=== PATIENT | female | born 1970 | race Caucasian/White ===

== ENCOUNTER 2018-08-14 23:21 | Inpatient (IN) | payer MEDICAID ==
[~2018-08-14] VITALS: Ht 160 cm; Wt 100.7 kg
[2018-08-14 23:24] VITALS: BP 176/98
--- NOTE | 2018-08-14 23:31 | NUR ---
PT AMBULATED TO BED 3
--- NOTE | 2018-08-14 23:37 | NUR ---
47 YO F BIB SELF AND MOTHER PRESENTS TO THE ED C/O 02/07 EPIGASTRIC/FLANK PAIN THAT X 1 DAY ACCOMPANIED BY N/V. PT REPORTS HX OF GALLSTONES. PT STATES SHE HAS EXPERIENCED THIS PAIN IN THE PAST AND IS USUALLY RELIEVED BY IBUPROFEN. PT STATES THAT MOTRIN HAS NOT HELPED HER PAIN. DENIES CHANGE IN BOWEL PATTERN. --SKIN IS PINK, DRY, WARM. PT IS ALERT, CALM, COOPERATIVE. BEHAVIOR APPROPRIATE. PT POSITIONED FOR COMFORT. HOB ELEVATED. SIDE RAIL UP X1. BED IN LOWEST POSITION. VSS. NO ACUTE DISTRESS AT THIS TIME.
[2018-08-14] MEDS ORDERED: NACL 0.9% 500 ML IV ONE (23:38)
[2018-08-14] MEDS ORDERED: KETOROLAC 30 MG/ML VIAL IVP ONE (23:40)
[2018-08-14] MEDS ORDERED: ONDANSETRON 4 MG/2 ML VIAL IVP ONE (23:40)
[2018-08-14 23:54] LABS: BASOPHILS # (AUTO) 0.1 K/uL (0.00-0.22); BASOPHILS % (AUTO) 0.9 % (0.0-2.0); EOSINOPHILS # (AUTO) 0.2 K/uL (0-0.4); EOSINOPHILS % (AUTO) 2.5 % (0.0-4.0); HEMOGLOBIN 13.6 g/dL (12.0-16.0); LYMPHOCYTES # (AUTO) 2.5 K/uL (2.5-16.5); LYMPHOCYTES % (AUTO) 26.9 % (20.5-51.1); MEAN CORPUSCULAR HEMOGLOBIN 27 pg (27-31); MEAN CORPUSCULAR HGB CONC 33 g/dL (33-37); MEAN CORPUSCULAR VOLUME 81.1 fL (80-94); MONOCYTES # (AUTO) 0.5 K/uL (0.8-1.0); NEUTROPHILS # (AUTO) 5.8 K/uL (1.8-7.7); NEUTROPHILS % (AUTO) 63.7 % (42.2-75.2); PLATELET COUNT (AUTO) 198 K/uL (140-450); RED BLOOD CELL COUNT(AUTO) 5.06 MIL/uL (4.20-5.40); RED CELL DISTRIBUTION WIDTH 16.8 % (11.6-13.7); WHITE BLOOD COUNT (AUTO) 9.1 K/uL (4.8-10.8)
[2018-08-15 00:08] LABS: ANION GAP 12.5 (8-16); CARBON DIOXIDE 25.2 mmol/L (21-32); CREATININE 0.7 mg/dL (0.6-1.3); POTASSIUM 3.7 mmol/L (3.5-5.1)
[2018-08-15 00:13] LABS: ALBUMIN 3.6 g/dL (3.4-5.0); TOTAL BILIRUBIN 0.2 mg/dL (0.0-1.0)
[2018-08-15] MEDS ORDERED: METOCLOPRAMIDE 10 MG/2 ML INJ VIAL IVP ONE (00:25)
--- NOTE | 2018-08-15 00:36 | NUR ---
US AT BEDSIDE.
--- NOTE | 2018-08-15 01:23 | NUR ---
PT TAKEN TO CT VIA WC.
[2018-08-15] MEDS ORDERED: ACETAMINOPHEN 325 MG TAB PO PRN (02:25)
[2018-08-15] MEDS ORDERED: DOCUSATE SODIUM 100 MG GELCAP PO PRN (02:25)
[2018-08-15 02:50] VITALS: BP 143/80
--- NOTE | 2018-08-15 02:50 | NUR ---
PT ARRIVED TO UNIT VIA GURNEY. PT AOX4, ON ROOM AIR WITH RIGHT HAND #20G RUNNING NS @100ML/HR. DISCUSSED PLAN OF CARE AND PT VERBALIZED UNDERSTANDING. NO S/S OF RESPIRATORY DISTRESS OR DISCOMFORT NOTED AT THIS TIME. VITAL SIGNS TAKE AND MRSA NASAL SWAB COLLECTED. PT C/O 09/07 PAIN- WILL MEDICATE. BED IN LOWEST POSITION, BED BREAKS ON, BOTH SIDE RAILS UP. BEDSIDE TABLE AND CALL LIGHT ARE WITHIN REACH. WILL CONTINUE TO MONITOR.
--- NOTE | 2018-08-15 02:50 | NUR ---
Patient will be admitted to care of Dr. Mejia. Admited to MS. Will go to room 112 A. Belongings list completed. Report to ROBERTH Gurrola.
[2018-08-15 02:51] LABS: PROTHROMBIN TIME 8.9 secs (10.8-13.4)
[2018-08-15 02:57] LABS: CHOL/HDL RATIO 4.7 (1-4.5); FREE T4 (FREE THYROXINE) 1.06 ng/dL (0.76-1.46); MAGNESIUM 2.2 mg/dL (1.8-2.4); PHOSPHORUS 2.5 mg/dL (2.5-4.9); THYROID STIMULATING HORMONE 5.69 uIU/mL (0.34-3.74)
[2018-08-15 03:02] LABS: APPEARANCE,URINE CLEAR (CLEAR); BILIRUBIN,URINE NEGATIVE (NEGATIVE); BLOOD, URINE TRACE-I (NEGATIVE); COLOR,URINE YELLOW (YELLOW); LEUKOCYTE ESTERASE ,URINE TRACE (NEGATIVE); NITRITE, URINE NEGATIVE (NEGATIVE); PH,URINE 6.5 (5.0-9.0); UGLUCOSE NEGATIVE (NEGATIVE)
[2018-08-15] MEDS: NACL 0.9% 1,000 ML IV SCH ×2 (03:03→14:53)
[2018-08-15 03:11] LABS: BARBITURATE, URINE NEG. ng/ml (NEG <=200); BENZODIAZEPINE, URINE NEG. ng/mL (NEG <=200); CANNABINOID, URINE NEG. ng/mL (NEG <=50); COCAINE, URINE NEG. ng/mL (NEG <=300); OPIATE, URINE NEG. ng/mL (NEG <=2000); PHENCYCLIDINE SCREEN,URINE NEG. ng/mL (NEG <=25)
[2018-08-15 03:21] LABS: RBC,URINE 0-5 /HPF (0-5); WBC,URINE 0-5 /HPF (0-5)
[2018-08-15] MEDS ORDERED: traZODone 50 MG TAB PO SCH (03:30)
[2018-08-15] MEDS: ONDANSETRON 4 MG/2 ML VIAL IM/IVP PRN ×3 (03:39→23:10)
[2018-08-15] MEDS: MORPHINE SULFATE 2 MG/ML SYR IVP PRN ×3 (03:39→14:53)
--- NOTE | 2018-08-15 03:39 | NUR ---
DR. JOAN HOPKINS IN TO SEE PT. ORDERED TO GIVE MORPHINE, ZOFRAN AND TRASADONE. MEDICATIONS GIVEN AND TOLERATED WELL. NO S/S OF RESPIRATORY DISTRESS OR DISCOMFORT NOTED AT THIS TIME. WILL CONTINUE TO MONITOR.
--- NOTE | 2018-08-15 05:56 | NUR ---
SCHEDULED MEDICATION ROCEPHIN GIVEN AND TOLERATED WELL. NO S/S OF RESPIRATORY DISTRESS OR DISCOMFORT NOTED AT THIS TIME. WILL CONTINUE TO MONITOR.
[2018-08-15] MEDS ORDERED: cefTRIAXone 1,000 MG VIAL ONE (06:01)
--- NOTE | 2018-08-15 07:25 | NUR ---
ENDORSED PT CARE TO DAY SHIFT NURSE BRIDGET FOR CONTINUITY OF CARE.
--- NOTE | 2018-08-15 07:26 | NUR ---
GOT BEDSIDE REPORT FROM ROBERTH BRIDGES. PATIENT ON MED SURGE AND STANDARD PRECAUTIONS IN PLACE. PATIENT AAOX4 AND ON ROOM AIR, NO DISTRESS NOTED. SKIN INTACT. IV ON R H 20 G, IV ASYMPTOMATIC PATENT AND INTACT. PATIENT AMBULATORY AND CONTINENT. BED IN LOW POSITION, CALL LIGHT WITHIN REACH, SIDE RAILS X2 UP
[2018-08-15 08:00] VITALS: BP 123/69
--- NOTE | 2018-08-15 08:14 | NUR ---
PATIENT HAS BEEN SCREENED AND CATEGORIZED LOW NUTRITION RISK. PATIENT WILL BE SEEN WITHIN 7 DAYS OF ADMISSION. 08/21/[address]
[2018-08-15] MEDS: TAMSULOSIN 0.4 MG CAP PO SCH (08:22)
[2018-08-15] MEDS: LACTOBACILLUS RHAMNOSUS GG 1 EACH CAP PO SCH (08:22)
--- NOTE | 2018-08-15 08:30 | NUR ---
ADMINISTERED SCHEDULED MEDS AND MORPHINE PRN 8/10 ABDOMINAL PAIN. PATIENT TOLERATED WELL
--- NOTE | 2018-08-15 10:56 | NUR ---
PATIENT AWARE OF SCHEDULED HIDA SCAN AROUND 1 PM TODAY AND THAT SHE CANNOT HAVE ANYTHING BY MOUTH, PT VERBALIZED UNDERSTANDING
[2018-08-15 11:28] LABS: EOSINOPHILS # (AUTO) 0.1 K/uL (0-0.4); EOSINOPHILS % (AUTO) 1.6 % (0.0-4.0); LYMPHOCYTES # (AUTO) 1.6 K/uL (2.5-16.5); MONOCYTES # (AUTO) 0.4 K/uL (0.8-1.0)
[2018-08-15 11:34] LABS: BASOPHILS % (AUTO) 0.5 % (0.0-2.0); HEMATOCRIT 36.9 % (36-48); LYMPHOCYTES % (AUTO) 25.9 % (20.5-51.1); MEAN CORPUSCULAR HEMOGLOBIN 27 pg (27-31); MEAN CORPUSCULAR HGB CONC 33 g/dL (33-37); MEAN CORPUSCULAR VOLUME 82.3 fL (80-94); NEUTROPHILS # (AUTO) 4.1 K/uL (1.8-7.7); PLATELET COUNT (AUTO) 176 K/uL (140-450); RED BLOOD CELL COUNT(AUTO) 4.48 MIL/uL (4.20-5.40); RED CELL DISTRIBUTION WIDTH 16.8 % (11.6-13.7); WHITE BLOOD COUNT (AUTO) 6.2 K/uL (4.8-10.8)
[2018-08-15 11:50] LABS: ANION GAP 10.8 (8-16); CREATININE 0.7 mg/dL (0.6-1.3); POTASSIUM 3.8 mmol/L (3.5-5.1)
--- NOTE | 2018-08-15 12:28 | NUR ---
PATIENT WATCHING TV, ON ROOM AIR NO DISTRESS NOTED
--- NOTE | 2018-08-15 13:34 | NUR ---
PATIENT PICKED UP FOR HIDA SCAN, CONSENT FORM SIGNED, CONSENT IN CHART
--- NOTE | 2018-08-15 16:22 | NUR ---
[facility]
[2018-08-15 16:35] VITALS: BP 144/81
--- NOTE | 2018-08-15 16:51 | NUR ---
ADMINISTERED ZOFRAN PRN FOR NAUSEA, PATIENT TOLERATED WELL
--- NOTE | 2018-08-15 19:22 | NUR ---
GAVE BEDSIDE REPORT TO ROBERTH MELLO. PATIENT ENDORSED IN STABLE CONDITION
--- NOTE | 2018-08-15 19:33 | NUR ---
RECEIVED FROM AM RN IN BED SITTING UP AND TALKING WITH A FAMILY MEMBER VISITING. ABLE TO VERBALIZE WELL IN ROMANSH. CARE PLANS FOR THE NIGHT DISCUSSED WITH PT. CALL LIGHT WITH IN REACH. NO SOB. DENIES PAIN AT THIS TIME. DX. OF CHOLECYSTITIS AND HYDRONEPHROSIS. IVF SITE TO LEFT HAND IN PLACE AND NO INFILTRATION NOTED.
--- NOTE | 2018-08-15 21:41 | NUR ---
RECEIVED ORDER FROM MD BISHOP TO GET CONSENT FOR PROCEDURE TOMORROW. RESIDENT MD RODAS. REMINDED PT. SHE IS NPO STARTING MIDNIGHT ORDERED BY MD BISHOP. A/O X 4. "OK"
[2018-08-15 22:59] VITALS: BP 147/87
[2018-08-15] MEDS: KETOROLAC 15 MG/ML VIAL IVP PRN ×2 (23:04→23:10)
--- NOTE | 2018-08-15 23:12 | NUR ---
PT. AWAKE AND REQUESTED FOR PAIN RELIEVER AND ANTI NAUSEA MEDICATION. A/O X 4. MEDICATED REQUESTED. ENCOURAGED TO RELAX AND TRY GO TO SLEEP. REMINDED OF NPO MIDNIGHT . "OK"
--- NOTE | 2018-08-16 01:35 | NUR ---
CHECKED ON PT. SLEEPING. NO RESTLESSNESS. CALL LIGHT WITH IN REACH. IVF SITE TO LEFT HAND INTACT AND NO INFILTRATION .
[2018-08-16] MEDS: NACL 0.9% 1,000 ML IV SCH ×2 (03:22→16:17)
--- NOTE | 2018-08-16 04:00 | NUR ---
SLEEPING WELL. NO RESTLESSNESS. CALL LIGHT WITHIN REACH.
--- NOTE | 2018-08-16 05:30 | NUR ---
SLEEPING WELL THIS SHIFT. CALL LIGHT WITH IN REACH. NO SOB. NO PAIN COMPLAINTS FURTHER DONE. ABLE TO VERBALIZE NEEDS WELL.
--- NOTE | 2018-08-16 06:17 | NUR ---
SLEEPING. AM PERSONAL HYGIENE RENDERED BY KEYLINER. WAKES UP EASILY. NO PAIN COMPLAINTS AT THIS TIME.
--- NOTE | 2018-08-16 07:10 | NUR ---
GOT BEDSIDE REPORT FROM ROBERTH MELLO. PATIENT AAOX3 AND ON ROOM AIR, NO DISTRESS NOTED. SKIN INTACT. IV ON L H 20 G INFUSING NS AT 80, IV ASYMPTOMATIC PATENT AND INTACT. PATIENT AMBULATORY AND CONTINENT. PATIENT ON MED SURGE AND STANDARD PRECAUTIONS IN PLACE. BED IN LOW POSITION, CALL LIGHT WITHIN REACH, SIDE RAILS X2 UP
[2018-08-16 07:19] LABS: MAGNESIUM 1.9 mg/dL (1.8-2.4); PHOSPHORUS 2.5 mg/dL (2.5-4.9)
[2018-08-16 07:20] LABS: ANION GAP 10.1 (8-16); CARBON DIOXIDE 25.7 mmol/L (21-32); CREATININE 0.6 mg/dL (0.6-1.3); POTASSIUM 3.8 mmol/L (3.5-5.1)
[2018-08-16 08:00] VITALS: BP 142/80
[2018-08-16] MEDS: LACTOBACILLUS RHAMNOSUS GG 1 EACH CAP PO SCH (09:06)
[2018-08-16] MEDS: TAMSULOSIN 0.4 MG CAP PO SCH (09:06)
--- NOTE | 2018-08-16 09:14 | NUR ---
ADMINISTERED SCHEDULED MEDS. PATIENT TOLERATED WELL
[2018-08-16 09:26] LABS: BASOPHILS % (AUTO) 0.5 % (0.0-2.0); EOSINOPHILS # (AUTO) 0.1 K/uL (0-0.4); EOSINOPHILS % (AUTO) 1.3 % (0.0-4.0); HEMATOCRIT 35.7 % (36-48); HEMOGLOBIN 11.5 g/dL (12.0-16.0); LYMPHOCYTES # (AUTO) 1.9 K/uL (2.5-16.5); LYMPHOCYTES % (AUTO) 31.3 % (20.5-51.1); MEAN CORPUSCULAR HEMOGLOBIN 27 pg (27-31); MEAN CORPUSCULAR HGB CONC 32 g/dL (33-37); MEAN CORPUSCULAR VOLUME 82.5 fL (80-94); MONOCYTES # (AUTO) 0.4 K/uL (0.8-1.0); MONOCYTES % (AUTO) 6.9 % (1.7-9.3); NEUTROPHILS # (AUTO) 3.7 K/uL (1.8-7.7); PLATELET COUNT (AUTO) 165 K/uL (140-450); RED BLOOD CELL COUNT(AUTO) 4.33 MIL/uL (4.20-5.40); WHITE BLOOD COUNT (AUTO) 6.2 K/uL (4.8-10.8)
--- NOTE | 2018-08-16 11:30 | NUR ---
L H IV LEAKING AND PATIENT COMPLAINING OF PAIN AT SITE. REMOVED L HAND IV 20 G
--- NOTE | 2018-08-16 11:37 | NUR ---
NEW IV STARTED ON L H 22 G, ASYMPTOMATIC PATENT AND INTACT. INFUSING NS AT 80
[2018-08-16] MEDS: KETOROLAC 15 MG/ML VIAL IVP PRN ×2 (11:50→21:47)
--- NOTE | 2018-08-16 14:40 | NUR ---
DR. SAWYER STATED PATIENT WILL HAVE SURGERY TOMORROW AND SHE WILL BE ON FULL LIQUID DIET FOR NOW. NOTIFIED PATIENT OF PLAN
[2018-08-16 16:00] VITALS: BP 125/78
[2018-08-16] MEDS: ONDANSETRON 4 MG/2 ML VIAL IM/IVP PRN (17:33)
--- NOTE | 2018-08-16 17:39 | NUR ---
ADMINISTERED ZOFRAN PRN FOR NAUSEA, PATIENT TOLERATED WELL, ON ROOM AIR, NO DISTRESS NOTED, WATCHING TV SITTING ON CHAIR
--- NOTE | 2018-08-16 19:19 | NUR ---
GAVE BEDSIDE REPORT TO ROBERTH MELLO. PATIENT ENDORSED IN STABLE CONDITION
--- NOTE | 2018-08-16 19:20 | NUR ---
RECEIVED FROM AM RN IN BED SLEEPING. WAKES UP EASILY WHEN CALLED BY NAME. NO SOB. NO PAIN COMPLAINTS AT THIS TIME. CALL LIGHT WITH IN REACH. REMINDED NPO MIDNIGHT TONIGHT FOR PLANNED PROCEDURE TOMORROW. "OK"
--- NOTE | 2018-08-16 20:38 | NUR ---
PT. AWAKE AT T HIS TIME A ND TALKING ON PHONE WITH FRIEND. REMINDED NPO MIDNIGHT. "OK" A/O X 4. ROM X 4. CLEAR SPEECH. DENIES PAIN AT THIS TIME.
--- NOTE | 2018-08-16 22:48 | NUR ---
SLEEPING AT THIS TIME.
--- NOTE | 2018-08-17 00:30 | NUR ---
SLEEPING AT THIS TIME. WAKES UP EASILY WHEN TOUCHED OR CALLED BY NAME. BEEN NPO SINCE MIDNIGHT.
[2018-08-17 00:45] VITALS: BP 124/71
--- NOTE | 2018-08-17 03:12 | NUR ---
AWAKE AND WENT TO RESTROOM TO URINATE. NO COMPLAINTS DONE.
[2018-08-17] MEDS: NACL 0.9% 1,000 ML IV SCH ×2 (05:10→20:34)
--- NOTE | 2018-08-17 05:36 | NUR ---
PT. AWAKE AND ASKING IF HER MOTHER COULD GO IN EARLY BEFORE SHE GOES TO OR. TOLD HER OK. NO PAIN COMPLAINTS DONE. VERBALIZING WELL.
[2018-08-17 06:32] LABS: BASOPHILS % (AUTO) 0.6 % (0.0-2.0); EOSINOPHILS # (AUTO) 0.2 K/uL (0-0.4); HEMATOCRIT 35.9 % (36-48); HEMOGLOBIN 11.9 g/dL (12.0-16.0); LYMPHOCYTES # (AUTO) 1.9 K/uL (2.5-16.5); LYMPHOCYTES % (AUTO) 33.4 % (20.5-51.1); MEAN CORPUSCULAR HEMOGLOBIN 27 pg (27-31); MEAN CORPUSCULAR HGB CONC 33 g/dL (33-37); MEAN CORPUSCULAR VOLUME 81.8 fL (80-94); MONOCYTES # (AUTO) 0.4 K/uL (0.8-1.0); MONOCYTES % (AUTO) 6.6 % (1.7-9.3); NEUTROPHILS # (AUTO) 3.2 K/uL (1.8-7.7); NEUTROPHILS % (AUTO) 56.4 % (42.2-75.2); PLATELET COUNT (AUTO) 180 K/uL (140-450); RED BLOOD CELL COUNT(AUTO) 4.39 MIL/uL (4.20-5.40); RED CELL DISTRIBUTION WIDTH 16.9 % (11.6-13.7); WHITE BLOOD COUNT (AUTO) 5.6 K/uL (4.8-10.8)
[2018-08-17 06:35] LABS: ANION GAP 8.9 (8-16); CARBON DIOXIDE 26.9 mmol/L (21-32); CREATININE 0.7 mg/dL (0.6-1.3); POTASSIUM 3.8 mmol/L (3.5-5.1)
[2018-08-17 06:44] LABS: MAGNESIUM 1.9 mg/dL (1.8-2.4); PHOSPHORUS 2.3 mg/dL (2.5-4.9)
--- NOTE | 2018-08-17 07:19 | NUR ---
PT. WHEELED OUT TO OR BY OR NURSES AWAKE AND ALERT. VERBALIZING WELL. NO COMPLAINTS DONE.
--- NOTE | 2018-08-17 07:20 | NUR ---
RECEIVED BEDSIDE REPORT FROM ROBERTH MELLO. PT STABLE, AWAKE, AND ALERT AND ORIENTED X4. NO SIGNS OF DISTRESS NOTED. DENIES PAIN OR SOB. NO REDNESS, SWELLING, OR INFLAMMATION NOTED ON IV SITE. BED IN LOWEST POSITION. CALL HARDEN WITHIN REACH. SAFETY MEASURES IN PLACE. PLAN OF CARE REVIEWED. PT TAKEN TO THE OR BY OR NURSES.
[2018-08-17] MEDS ORDERED: ONDANSETRON 4 MG/2 ML VIAL ONE (07:23)
[2018-08-17] MEDS ORDERED: PHENYLEPHRINE 10 MG/ML VIAL ONE (07:23)
[2018-08-17] MEDS ORDERED: PROPOFOL 200 MG/20 ML VIAL IV ONE (07:23)
[2018-08-17] MEDS ORDERED: DEXAMETHASONE 4 MG/ML VIAL ONE (07:23)
[2018-08-17] MEDS ORDERED: ROCURONIUM 50 MG/5 ML VIAL IV ONE (07:23)
[2018-08-17] MEDS ORDERED: SUCCINYLCHOLINE CHLORIDE 200 MG/10 ML VIAL IVP ONE (07:23)
[2018-08-17] MEDS ORDERED: KETOROLAC 30 MG/ML VIAL ONE (07:23)
[2018-08-17] MEDS ORDERED: LIDOCAINE 2% 100 MG/5 ML SYR IVP ONE (07:23)
[2018-08-17] MEDS ORDERED: GLYCOPYRROLATE 0.2 MG/ML VIAL ONE (07:23)
[2018-08-17] MEDS ORDERED: SEVOFLURANE 250 ML BTL INH ONE (07:23)
[2018-08-17] MEDS ORDERED: BUPIVACAINE-MPF 0.25% 30 ML VIAL INJ ONE (07:36)
[2018-08-17] MEDS ORDERED: MIDAZOLAM 2 MG/2 ML VIAL ONE (07:39)
[2018-08-17] MEDS ORDERED: fentaNYL 0.05 MG/ML VIAL ONE (07:39)
[2018-08-17] MEDS ORDERED: HYDROmorphone 1 MG/ML AMP IVP PRN (08:00)
[2018-08-17] MEDS ORDERED: ONDANSETRON 4 MG/2 ML VIAL IVP PRN (08:00)
[2018-08-17] MEDS ORDERED: DEXT 5% / NACL 0.45% 1,000 ML IV SCH (09:35)
[2018-08-17] MEDS: HYDROmorphone PFS 2 MG/ML SYR ONE ×2 (10:14→10:24)
[2018-08-17 10:40] VITALS: BP 140/79
--- NOTE | 2018-08-17 10:40 | NUR ---
PT CAME BACK FROM THE OR, PT STABLE. VITAL SIGNS TAKEN. PT SLEEPING BUT EASILY AROUSABLE.
[2018-08-17] MEDS: TAMSULOSIN 0.4 MG CAP PO SCH (11:04)
[2018-08-17] MEDS: LACTOBACILLUS RHAMNOSUS GG 1 EACH CAP PO SCH (11:04)
--- NOTE | 2018-08-17 11:13 | NUR ---
ADMINISTERED SCHEDULED MEDICATIONS, PT TOLERATED WELL. FAMILY AT THE BEDSIDE.
[2018-08-17] MEDS: ONDANSETRON 4 MG/2 ML VIAL IM/IVP PRN ×3 (13:46→22:17)
[2018-08-17] MEDS: MORPHINE SULFATE 2 MG/ML SYR IVP PRN ×3 (13:46→22:18)
--- NOTE | 2018-08-17 13:51 | NUR ---
ADMINISTERED PRN MORPHINE FOR 7/10 ABDOMINAL PAIN AND PRN ZOFRAN FOR NAUSEA. PT TOLERATED WELL.
--- NOTE | 2018-08-17 15:30 | NUR ---
VITAL SIGNS TAKEN, PT STABLE. NO OTHER NEEDS AT THIS TIME.
[2018-08-17 16:00] VITALS: BP 140/90
--- NOTE | 2018-08-17 17:10 | NUR ---
INSTRUCTED PT ON HOW TO USE INCENTIVE SPIROMETER PER MD ORDER. PT VERBALIZED UNDERSTANDING AND DEMONSTRATED PROPER USE.
--- NOTE | 2018-08-17 18:13 | NUR ---
ADMINISTERED PRN MORPHINE FOR 10/10 ABDOMINAL PAIN AND PRN ZOFRAN FOR NAUSEA. PT TOLERATED WELL.
--- NOTE | 2018-08-17 19:15 | NUR ---
ENDORSED PT TO RN HENRY FOR CONTINUITY OF CARE. PT STABLE.
--- NOTE | 2018-08-17 19:20 | NUR ---
RECEIVED BEDSIDE REPORT FROM ENTRY LEVEL CIVIL ENGINEER NURSE FOR CONTINUITY OF CARE. PATIENT IS AWAKE, ALERT, AND COOPERATIVE. RESPIRATION EVEN UNLABORED ON ROOM AIR. DENIES PAIN. SKIN IS WARM AND DRY. IV IS PATENT AND INTACT. S/P LAP CHOLECYSTECTOMY DRESSING IS INTACT AND DRY. PLAN OF CARE REVIEWED AND DISCUSSED. ALL SAFETY MEASURES IN PLACE. BED IN LOW POSITION. CALL LIGHT WITHIN REACH AND ABLE TO VERBALIZES ITS USE. WILL CONTINUE TO MONITOR.
--- NOTE | 2018-08-17 20:00 | NUR ---
INITIAL ASSESSMENT DONE. VITALS STABLE. NO DISTRESS NOTED. WILL CONTINUE TO MONITOR.
--- NOTE | 2018-08-17 20:30 | NUR ---
ALL SCHEDULE MEDS WERE GIVEN AND TOLERATED THEM WELL. NO ASE NOTED. WILL CONTINUE TO MONITOR.
[2018-08-17] MEDS: SODIUM PHOS / POTASSIUM PHOS 1 PKT PDR PO SCH (20:33)
--- NOTE | 2018-08-17 21:30 | NUR ---
PATIENT LYING IN BED WATCHING TV RESPIRATION EVEN UNLABORED ON ROOM AIR. NO DISTRESS NOTED WILL CONTINUE TO MONITOR.
--- NOTE | 2018-08-17 22:18 | NUR ---
PATIENT COMPLAINED OF ABDOMINAL PAIN 8/10 AND NAUSEOUS. PRN PAIN MED AND ZOFRAN GIVEN PER ORDER. WILL CONTINUE TO MONITOR.
[2018-08-18] VITALS: BP 159/83
[2018-08-18] MEDS ORDERED: MORPHINE SULFATE 2 MG/ML SYR IVP SCH
--- NOTE | 2018-08-18 | NUR ---
VITALS WERE TAKEN. PATIENT COMPLAINED OF PAIN MEDS NOT EFFECTIVE AND STILL HAVE 9/[address] HOPKINS AWARE OF THE SITUATION. ANOTHER DOSE OF PAIN MED ADMINISTERED PER ORDER. WILL CONTINUE TO MONITOR.
--- NOTE | 2018-08-18 02:15 | NUR ---
CHECKED PATIENT. PATIENT SLEEPING RESPIRATION EVEN UNLABORED ON ROOM AIR. NO DISTRESS NOTED. CALL LIGHT WITHIN REACH. BED IS IN LOW POSITION. WILL CONTINUE TO MONITOR.
--- NOTE | 2018-08-18 04:19 | NUR ---
CHECKED PATIENT. PATIENT SLEEPING RESPIRATION EVEN UNLABORED ON ROOM AIR. NO DISTRESS NOTED. CALL LIGHT WITHIN REACH. WILL CONTINUE TO MONITOR.
[2018-08-18] MEDS: NACL 0.9% 1,000 ML IV SCH ×2 (04:28→12:27)
[2018-08-18] MEDS: ONDANSETRON 4 MG/2 ML VIAL IM/IVP PRN (05:04)
[2018-08-18] MEDS: MORPHINE SULFATE 2 MG/ML SYR IVP PRN (05:04)
--- NOTE | 2018-08-18 05:04 | NUR ---
PATIENT COMPLAINED OF ABDOMINAL PAIN 8/10 AND NAUSEOUS. PRN PAIN MED AND ZOFRAN ADMINISTERED PER ORDER. WILL CONTINUE TO MONITOR.
--- NOTE | 2018-08-18 06:30 | NUR ---
ASSIST PATIENT TO THE BATHROOM. NO DISTRESS NOTED. WILL CONTINUE TO MONITOR.
[2018-08-18 07:12] LABS: BASOPHILS % (AUTO) 0.1 % (0.0-2.0); EOSINOPHILS % (AUTO) 0.1 % (0.0-4.0); HEMATOCRIT 34.5 % (36-48); HEMOGLOBIN 11.5 g/dL (12.0-16.0); LYMPHOCYTES # (AUTO) 1.4 K/uL (2.5-16.5); LYMPHOCYTES % (AUTO) 16.3 % (20.5-51.1); MEAN CORPUSCULAR HEMOGLOBIN 27 pg (27-31); MEAN CORPUSCULAR HGB CONC 33 g/dL (33-37); MEAN CORPUSCULAR VOLUME 81.6 fL (80-94); MONOCYTES # (AUTO) 0.6 K/uL (0.8-1.0); MONOCYTES % (AUTO) 7.1 % (1.7-9.3); NEUTROPHILS # (AUTO) 6.3 K/uL (1.8-7.7); NEUTROPHILS % (AUTO) 76.4 % (42.2-75.2); PLATELET COUNT (AUTO) 172 K/uL (140-450); RED BLOOD CELL COUNT(AUTO) 4.23 MIL/uL (4.20-5.40); RED CELL DISTRIBUTION WIDTH 16.5 % (11.6-13.7); WHITE BLOOD COUNT (AUTO) 8.3 K/uL (4.8-10.8)
--- NOTE | 2018-08-18 07:18 | NUR ---
RECEIVED BEDSIDE REPORT FROM ROBERTH FIGUEROA. PT STABLE, AWAKE, AND ALERT AND ORIENTED X4. NO SIGNS OF DISTRESS NOTED. DENIES PAIN OR SOB. NO REDNESS, SWELLING, OR INFLAMMATION NOTED ON IV SITE. CALL HARDEN WITHIN REACH. BED IN LOWEST POSITION, BED ALARM ON. SAFETY MEASURES IN PLACE. PLAN OF CARE REVIEWED.
--- NOTE | 2018-08-18 07:19 | NUR ---
ENDORSED PATIENT TO DAY SHIFT NURSE FOR CONTINUITY OF CARE. PATIENT CONDITION IS STABLE.
[2018-08-18 07:48] LABS: MAGNESIUM 1.7 mg/dL (1.8-2.4); PHOSPHORUS 1.9 mg/dL (2.5-4.9)
[2018-08-18 08:00] VITALS: BP 133/82
[2018-08-18 08:00] LABS: ANION GAP 10.2 (8-16); CREATININE 0.6 mg/dL (0.6-1.3); POTASSIUM 3.2 mmol/L (3.5-5.1); TOTAL BILIRUBIN 0.5 mg/dL (0.0-1.0)
[2018-08-18] MEDS ORDERED: MAG SULF 2000 MG/WATER PREMIX 50 ML IV SCH (08:30)
--- NOTE | 2018-08-18 08:30 | NUR ---
MADE DR MCNEILL AWARE OF MAGNESIUM 1.7 AND POTASSIUM 3.2. WILL RECEIVE NEW ORDERS.
[2018-08-18] MEDS ORDERED: POTASSIUM CHLORIDE 10 MEQ TABER PO SCH (08:31)
[2018-08-18] MEDS: TAMSULOSIN 0.4 MG CAP PO SCH (10:01)
[2018-08-18] MEDS: HYDROcodone/APAP 7.5/325 MG 1 TAB PO PRN ×2 (10:01→14:52)
[2018-08-18] MEDS: LACTOBACILLUS RHAMNOSUS GG 1 EACH CAP PO SCH (10:01)
[2018-08-18] MEDS: SODIUM PHOS / POTASSIUM PHOS 1 PKT PDR PO SCH (10:03)
--- NOTE | 2018-08-18 10:10 | NUR ---
ADMINISTERED SCHEDULED MEDICATIONS, PT TOLERATED WELL. NO OTHER NEEDS AT THIS TIME.
[2018-08-18] MEDS ORDERED: ACET-9529 PO (12:30)
[2018-08-18] MEDS ORDERED: DOCU-299 PO (12:30)
--- NOTE | 2018-08-18 12:30 | NUR ---
PT STABLE, WATCHING TV. NO OTHER NEEDS AT THIS TIME.
[2018-08-18] MEDS ORDERED: ONDA4TAB PO (12:31)
--- NOTE | 2018-08-18 14:53 | NUR ---
ADMINISTERED PRN NORCO FOR 6/10 ABDOMINAL PAIN. PT TOLERATED WELL. NO OTHER NEEDS AT THIS TIME.
[2018-08-18 16:00] VITALS: BP 132/60
--- NOTE | 2018-08-18 16:30 | NUR ---
VITAL SIGNS TAKEN, PT STABLE. PT AMBULATED TO THE BATHROOM WITH STEADY GAIT.
--- NOTE | 2018-08-18 18:40 | NUR ---
D/C INSTRUCTIONS AND PAPERWORK GIVEN, PT VERBALIZED UNDERSTANDING. QUESTIONS AND CONCERNS WERE ANSWERED. D/C IV, CATHETER TIP INTACT, BLEEDING CONTROLLED. DISCHARGE PHOTOGRAPHS TAKEN, FLU VACCINE NOT GIVEN DUE TO PATIENT WANTS TO GET IT FROM PCP, PNEUMONIA VACCINE N/A. PT AMBULATED TO THE HALLWAY WITH STEADY GAIT. PT TOOK ALL BELONGINGS HOME. ESCORTED PT TO THE LOBBY. PT STABLE.
== END 2018-08-18 18:40 | disposition home or self-care (01) | DRG 263 ==
LOC: MED 23:21 → MTU 08-15 02:26
PROVIDERS: ADMIT General Practice; ATTEND General Practice
PROC: 0FT44ZZ Resection of Gallbladder, Percutaneous Endoscopic Approach (ICD-10-PCS; principal; 2018-08-17 07:30)
DX: K80.62 Calculus of gallbladder and bile duct with acute cholecystitis without obstruction (principal); E87.8 Other disorders of electrolyte and fluid balance, not elsewhere classified; E66.01 Morbid (severe) obesity due to excess calories; N13.6 Pyonephrosis; E83.52 Hypercalcemia; E83.39 Other disorders of phosphorus metabolism; I10 Essential (primary) hypertension; Z68.39 Body mass index [BMI] 39.0-39.9, adult; Z71.3 Dietary counseling and surveillance; N39.0 Urinary tract infection, site not specified; E02 Subclinical iodine-deficiency hypothyroidism
CPT/HCPCS: 36415; 71045; 76705; 78445; 80048; 80053; 80305; 81001; 82140; 83036; 83605; 83690; 83735; 83880; 84100; 84439; 84443; 85025; 85610; 85730; 86886; 86900; 86901; 87081; 87086; 88304; 93005; 96361; 96374; 96375; 99285; A9510; J0330; J0696; J1100; J1170; J1644; J1885; J2001; J2250; J2270; J2370; J2405; J2704; J2765; J3010; J3475; J3490; J7030; J7060; Q0092

== ENCOUNTER 2022-01-10 16:15 | Emergency (ER) | payer MEDICAID ==
[~2022-01-10] VITALS: Ht 154.9 cm; Wt 101.6 kg
[~2022-01-10 16:15] MED LIST: ACET-9529 PO; DOCU-299 PO; ONDA4TAB PO
[2022-01-10 16:22] VITALS: BP 167/85
--- NOTE | 2022-01-10 17:46 | NUR ---
Dr. Owens evaluating patient at bedside.
--- NOTE | 2022-01-10 17:49 | NUR ---
51 y/o female bib self with c/o chest pain and headache x 3 days. Patient also has chills and feels SOB. Current pxygen saturation is 96%. Patient denies any fever. Patient states her pain is 6/10 non-radiating to the chest. Patient also is complaining of sweating and numbness to left hand. Patient has been under increased stress the last couple of weeks. Medical History: HTN, Fibroids NKDA
[2022-01-10] MEDS ORDERED: KETOROLAC 60 MG/2 ML VIAL IM ONE (18:05)
[2022-01-10] MEDS ORDERED: IBUP-2213 PO (18:06)
[2022-01-10] MEDS ORDERED: CIPR500T4 PO (18:06)
[2022-01-10] MEDS ORDERED: ACET-8386 PO (18:06)
[2022-01-10 18:43] VITALS: BP 140/80
--- NOTE | 2022-01-10 18:43 | NUR ---
Patient discharged with v/s stable. Written and verbal after care instructions given. Patient alert, oriented and verbalized understanding of instructions. Ambulatory with steady gait. All questions addressed prior to discharge. ID band removed. Patient advised to follow up with PMD. Rx of Cipro, Ibuprofen and Hydrocodone-Acetaminophen given. Opportunity to ask questions provided and answered.
--- NOTE | 2022-01-10 18:44 | NUR ---
The patient's care was reviewed and supervised by Qian Gomes RN.
== END 2022-01-10 18:43 | disposition home or self-care (01) ==
LOC: MED 16:15
DX: R51.9 Headache, unspecified (principal); R07.89 Other chest pain; N39.0 Urinary tract infection, site not specified; Z90.49 Acquired absence of other specified parts of digestive tract; Z98.890 Other specified postprocedural states; Z79.2 Long term (current) use of antibiotics; Z79.1 Long term (current) use of non-steroidal anti-inflammatories (NSAID); Z79.891 Long term (current) use of opiate analgesic; Z79.899 Other long term (current) drug therapy
CPT/HCPCS: 81002; 81025; 93005; 96372; 99283; J1885

== ENCOUNTER 2023-12-21 19:09 | Inpatient (IN) | payer MEDICAID ==
[~2023-12-21] VITALS: Ht 154.9 cm; Wt 98.2 kg
[~2023-12-21 19:09] MED LIST changes: +ACET-8905 PO; +CIPR500T4 PO; +IBUP-2213 PO
[2023-12-21 19:26] VITALS: BP 145/82; PULSE 131; RESP 20; TEMP 103; O2SAT 98
[2023-12-21] MEDS: ACETAMINOPHEN EXTRA STRENGTH 500 MG TAB PO ONE (19:38)
[2023-12-21 21:00] LABS: BASOPHILS % (AUTO) 0.3 % (0.0-2.0); EOSINOPHILS % (AUTO) 0.3 % (0.0-4.0); HEMATOCRIT 39.3 % (36-48); HEMOGLOBIN 13.1 g/dL (12.0-16.0); LYMPHOCYTES # (AUTO) 0.8 K/uL (2.5-16.5); LYMPHOCYTES % (AUTO) 9.2 % (20.5-51.1); MEAN CORPUSCULAR HEMOGLOBIN 29 pg (27-31); MEAN CORPUSCULAR HGB CONC 33 g/dL (33-37); MEAN CORPUSCULAR VOLUME 86.5 fL (80-94); MONOCYTES # (AUTO) 0.6 K/uL (0.8-1.0); MONOCYTES % (AUTO) 6.3 % (1.7-9.3); NEUTROPHILS # (AUTO) 7.6 K/uL (1.8-7.7); NEUTROPHILS % (AUTO) 83.9 % (42.2-75.2); PLATELET COUNT (AUTO) 175 K/uL (140-450); RED BLOOD CELL COUNT(AUTO) 4.54 MIL/uL (4.20-5.40); RED CELL DISTRIBUTION WIDTH 13.7 % (11.6-13.7); WHITE BLOOD COUNT (AUTO) 9.1 K/uL (4.8-10.8)
[2023-12-21] MEDS: ONDANSETRON 4 MG ODT PO ONE (21:02)
[2023-12-21] MEDS: NACL 0.9% 1,000 ML IV ONE (21:04)
[2023-12-21] MEDS: KETOROLAC 30 MG/ML VIAL IVP ONE (21:06)
[2023-12-21 21:18] LABS: ANION GAP 15.8 (8-16); CARBON DIOXIDE 21.1 mmol/L (21-32); POTASSIUM 3.9 mmol/L (3.5-5.1)
[2023-12-21 21:19] LABS: CALCIUM 12.4 mg/dL (8.5-10.1)
[2023-12-21 21:40] LABS: APPEARANCE,URINE SL CLOUDY (CLEAR); BILIRUBIN,URINE NEGATIVE (NEGATIVE); BLOOD, URINE 3+ (NEGATIVE); COLOR,URINE YELLOW (YELLOW); LEUKOCYTE ESTERASE ,URINE 2+ (NEGATIVE); NITRITE, URINE NEGATIVE (NEGATIVE); PROTEIN,URINE 1+ (NEGATIVE); UGLUCOSE NEGATIVE (NEGATIVE); UROBILINOGEN,URINE 0.2 EU/dL (0.2 - 1)
[2023-12-21 21:47] LABS: BACTERIA,URINE 10-30 (MOD) /HPF (None Seen); RBC,URINE 11-20 (MOD) /HPF (0-5); SQUAMOUS EPITHELIAL CELL,UR 0-3 (FEW) /LPF (0-3 (FEW))
[2023-12-21] MEDS: CIPROFLOXACIN 400 MG/200ML-D5W 200 ML IV ONE (22:34)
[2023-12-22] VITALS (7 sets, daily range): BP systolic 98–125; BP diastolic 53–67; PULSE 80–113; RESP 18–20; TEMP 98–103.2; O2SAT 94–99
[2023-12-22] MEDS ORDERED: [UNRECOGNIZED DRUG - CODE] PO (00:27)
[2023-12-22] MEDS ORDERED: ONDANSETRON 4 MG/2 ML VIAL IVP PRN (02:10)
[2023-12-22] MEDS: MORPHINE SULFATE 4 MG/ML SYR IVP STA (02:30)
[2023-12-22] MEDS ORDERED: ACETAMINOPHEN EXTRA STRENGTH 500 MG TAB ONE (02:35)
[2023-12-22] MEDS: ACETAMINOPHEN EXTRA STRENGTH 500 MG TAB PO PRN (03:19)
[2023-12-22] MEDS: cefTRIAXone 1,000 MG VIAL ONE (05:41)
[2023-12-22 07:23] LABS: ALBUMIN 3.1 g/dL (3.4-5.0); ANION GAP 12.4 (8-16); CALCIUM 11.3 mg/dL (8.5-10.1); CARBON DIOXIDE 23.9 mmol/L (21-32); CREATININE 1.1 mg/dL (0.6-1.3); MAGNESIUM 1.6 mg/dL (1.8-2.4); PHOSPHORUS 2.7 mg/dL (2.5-4.9); POTASSIUM 4.3 mmol/L (3.5-5.1); TOTAL BILIRUBIN 0.7 mg/dL (0.0-1.0); TOTAL PROTEIN, SERUM 6.7 g/dL (6.4-8.2)
[2023-12-22] MEDS: CEFEPIME 1,000 MG in DEXTROSE 5% 50 ML IV SCH (21:17)
[2023-12-22] MEDS: MAGNESIUM OXIDE 400 MG TAB PO ONE (22:21)
[2023-12-22] MEDS: MAGNESIUM OXIDE 400 MG TAB ONE (22:23)
[2023-12-22] MEDS: KETOROLAC 30 MG/ML VIAL IVP PRN (22:37)
[2023-12-23 04:00] VITALS: BP_SYST 114; BP_SYST 120; BP_DIAS 50; BP_DIAS 64; PULSE 72; RESP 20; TEMP 97.5; O2SAT 99
[2023-12-23 06:26] LABS: BASOPHILS % (AUTO) 0.2 % (0.0-2.0); EOSINOPHILS % (AUTO) 0.1 % (0.0-4.0); HEMOGLOBIN 12.7 g/dL (12.0-16.0); LYMPHOCYTES # (AUTO) 1.3 K/uL (2.5-16.5); MEAN CORPUSCULAR HEMOGLOBIN 29 pg (27-31); MEAN CORPUSCULAR HGB CONC 33 g/dL (33-37); MEAN CORPUSCULAR VOLUME 86.8 fL (80-94); MONOCYTES # (AUTO) 0.8 K/uL (0.8-1.0); MONOCYTES % (AUTO) 8.2 % (1.7-9.3); NEUTROPHILS # (AUTO) 7.4 K/uL (1.8-7.7); NEUTROPHILS % (AUTO) 77.5 % (42.2-75.2); PLATELET COUNT (AUTO) 172 K/uL (140-450); RED BLOOD CELL COUNT(AUTO) 4.38 MIL/uL (4.20-5.40); RED CELL DISTRIBUTION WIDTH 13.9 % (11.6-13.7); WHITE BLOOD COUNT (AUTO) 9.5 K/uL (4.8-10.8)
[2023-12-23 06:43] LABS: ALBUMIN 3.3 g/dL (3.4-5.0); ANION GAP 11.3 (8-16); CALCIUM 11.8 mg/dL (8.5-10.1); CARBON DIOXIDE 26.2 mmol/L (21-32); POTASSIUM 3.5 mmol/L (3.5-5.1); TOTAL BILIRUBIN 0.5 mg/dL (0.0-1.0); TOTAL PROTEIN, SERUM 7.6 g/dL (6.4-8.2)
[2023-12-23 08:00] VITALS: BP 109/57; PULSE 70; RESP 18; TEMP 99; O2SAT 99
[2023-12-23] MEDS: TAMSULOSIN 0.4 MG CAP PO SCH (11:49)
[2023-12-23] MEDS: FUROSEMIDE 20 MG/2 ML VIAL IVP SCH (11:50)
[2023-12-23] MEDS: POTASSIUM CHLORIDE 10 MEQ TABER PO SCH (11:50)
== END 2023-12-23 16:33 | disposition left against medical advice (07) | DRG 463 ==
LOC: MED 19:09 → MTU 12-22 01:24
PROVIDERS: ADMIT Student in an Organized Health Care Education/Training Program; ATTEND Student in an Organized Health Care Education/Training Program
DX: N13.6 Pyonephrosis (principal); E44.1 Mild protein-calorie malnutrition; E83.52 Hypercalcemia; E83.42 Hypomagnesemia; Z79.899 Other long term (current) drug therapy; Z88.8 Allergy status to other drugs, medicaments and biological substances; Z68.41 Body mass index [BMI] 40.0-44.9, adult
CPT/HCPCS: 36415; 80048; 80053; 81001; 83605; 83735; 84100; 85025; 87040; 87081; 87086; 87186; 96361; 96374; 96375; 99285; J0692; J0696; J0744; J1885; J1940; J2270; J7060; Q0162